=== PATIENT | male | born 1955 | race Caucasian/White ===

== ENCOUNTER 2017-11-29 23:47 | Emergency (ER) | payer OTHER ==
[~2017-11-29] VITALS: Ht 175.3 cm; Wt 83.9 kg
[2017-11-29] MEDS ORDERED: ASPIRIN325 (23:53)
[2017-11-29] MEDS ORDERED: ATORVASTATIN CA40 MG (23:54)
[2017-11-29] MEDS ORDERED: CARVEDILOL12.5 MG (23:54)
[2017-11-29] MEDS ORDERED: FLOMAX0.4 MG (23:55)
[2017-11-29] MEDS ORDERED: HEARTBURN RELI200 MG (23:55)
[2017-11-29] MEDS ORDERED: SINGULAIR 10 MG10 M1 (23:55)
[2017-11-29] MEDS ORDERED: COZAAR 50 MG TA50 M2 (23:56)
[2017-11-30 00:14] LABS: ABSOLUTE BASOPHILS 0.1 thou/uL (0.0-0.2); ABSOLUTE EOSINOPHILS 0.2 thou/uL (0.0-0.7); ABSOLUTE LYMPHOCYTES 1.3 thou/uL (0.8-5.3); ABSOLUTE MONOCYTES 0.7 thou/uL (0.0-1.2); ABSOLUTE NEUTROPHILS 3.5 thou/uL (1.6-8.1); BASOPHILS 1.3 %; HEMATOCRIT 45.7 % (42.0-52.0); HEMOGLOBIN 15.6 gm/dL (14.0-18.0); LYMPHOCYTES 22.2 %; MCH 29.3 pg (26.0-34.0); MCV 86.2 fL (80.0-100.0); MONOCYTES 12.4 %; MPV 9.2 fl. (7.2-11.1); NUCLEATED RBCS 0 /100WBC; PLATELET COUNT* 159 thou/uL (150-400); POLYS 60.1 %; RDW-CV 13.4 % (10.5-14.5); WBC 5.8 thou/uL (4.0-11.0)
[2017-11-30 00:16] LABS: ANION GAP 9 mmol/L (7-16); BUN 18 mg/dL (7-18); CALCIUM 9.2 mg/dL (8.5-10.1); CHLORIDE 102 mmol/L (98-107); CO2 27 mmol/L (21-32); CREATININE 0.9 mg/dL (0.6-1.3); GLUCOSE 134 mg/dL (70-99); POTASSIUM 3.6 mmol/L (3.5-5.1); SODIUM 138 mmol/L (136-145)
[2017-11-30 00:27] LABS: ALBUMIN 4.1 g/dL (3.4-5.0); ALKALINE PHOSPHATASE 88 U/L (46-116); LIPASE 161 U/L (73-393); NT-PRO BRAIN NAT PEPTIDE 21 pg/mL (<300); SGOT 24 U/L (15-37); SGPT 36 U/L (30-65); TOTAL BILIRUBIN 0.5 mg/dL (<0.1-1.0); TOTAL PROTEIN 8.1 g/dL (6.4-8.2); TROPONIN-I LEVEL <0.06 ng/mL (<0.06)
[2017-11-30 01:00] LABS: PROTIME 10.1 Seconds (9.20-11.50)
[2017-11-30 03:17] VITALS: BP 155/95
--- NOTE | 2017-12-01 12:54 | EKG ---
[place] [address] ELECTROCARDIOGRAM REPORT Name: BRENDA CHAMORRO [id number] Admission: 11/29/17 Attend Phys: Discharge: 11/30/17 Date of : 51 Report #: [id number] THIS REPORT FOR: //name// [facility] ED Test Date: 2017-11-29 Test Time: 23:53:58 Pat Name: BRENDA CHAMORRO Department: Room: Gender: M [employer] Fe[employer]: IZTA : 1955 Requested By: Kamini Carrillo Order Number: [id number] MD: Harrison Espinoza Measurements Intervals [place] Rate: 84 P: 34 MI: 180 QRS: -27 QRSD: 97 T: 37 QT: 365 QTc: 432 Interpretive Statements Sinus rhythm Abnormal R-wave progression, early transition Inferior infarct, old Baseline wander in lead(s) V1 Compared to ECG 02/14/2009 13:18:39 Myocardial infarct finding now present ST (T wave) deviation no longer present Electronically Signed On 12-01-2017 12:54:18 CDT by Harrison Espinoza [email or web address] <ELECTRONICALLY SIGNED> By: Harrison Espinoza MD, [facility] 12/01/17 1254 [id number] Harrison Espinoza MD, [facility] /EPI
== END 2017-11-30 03:18 | disposition home or self-care (01) ==
LOC: M.ERS 23:47
PROVIDERS: Emergency Medicine
DX: R07.9 Chest pain, unspecified (principal); R06.02 Shortness of breath; K50.90 Crohn's disease, unspecified, without complications; I10 Essential (primary) hypertension; Z95.811 Presence of heart assist device